=== PATIENT | female | born 1980 | race Two or more races ===

== ENCOUNTER → 2017-07-27 | Outpatient (CLI) | payer OTHER | END | disposition home or self-care (01) | LOC: RX STUDY 10:05 | DX: R10.2 Pelvic and perineal pain (principal) ==

== ENCOUNTER 2018-04-25 14:00 | Inpatient (IN) | payer OTHER ==
[~2018-04-25] VITALS: Ht 154.9 cm; Wt 125.0 kg
[2018-04-28] MEDS ORDERED: PRENATAL 19 TA1 EAC1 PO (16:08)
[2018-04-30] MEDS ORDERED: DOCUSATE SODIU100 MG PO (08:54)
[2018-04-30] MEDS ORDERED: IBUPROFEN400 MG PO (08:55)
== END 2018-04-30 15:36 | DRG 768 ==
LOC: LDR 04-28 00:59 → SURG-SUITE 04-28 14:18
PROC: 10E0XZZ Delivery of Products of Conception, External Approach (ICD-10-PCS; principal; 2018-04-28)
PROC: 0DQR0ZZ Repair Anal Sphincter, Open Approach (ICD-10-PCS; 2018-04-28)
PROC: 10907ZC Drainage of Amniotic Fluid, Therapeutic from Products of Conception, Via Natural or Artificial Opening (ICD-10-PCS; 2018-04-28)
PROC: 3E033VJ Introduction of Other Hormone into Peripheral Vein, Percutaneous Approach (ICD-10-PCS; 2018-04-28)
PROC: 4A1HXCZ Monitoring of Products of Conception, Cardiac Rate, External Approach (ICD-10-PCS; 2018-04-28)
DX: O70.21 Third degree perineal laceration during delivery, IIIa (principal); Z37.0 Single live birth; Z3A.39 39 weeks gestation of pregnancy